=== PATIENT | male | born 1985 | race Caucasian/White ===

== ENCOUNTER 2021-05-01 11:03 | Emergency (ER) | payer SELFPAY ==
[~2021-05-01] VITALS: Ht 185.4 cm; Wt 75.0 kg
[~2021-05-01 11:03] MED LIST: AMOX500C2; CLIN300C3 PO; CODE-54; HCA25SU PR
[2021-05-01] MEDS ORDERED: TETANUS,DIPTH,PERTUSS P/F (BOOSTRIX) 0.5 ML VIAL IM ONE (11:15)
[2021-05-01] MEDS ORDERED: LIDOCAINE/EPI 2% 1:100,00 (XYLOCAINE) 20 ML VIAL INJ ONE (11:15)
[2021-05-01] MEDS ORDERED: ONDANSETRON 4 MG/2 ML (SDV) Z0FRAN ONE (11:23)
[2021-05-01] MEDS ORDERED: ONDANSETRON 4 MG/2 ML (SDV) Z0FRAN IVP ONE (11:30)
--- NOTE | 2021-05-01 11:33 | ED Fall/Injury ---
General Chief Complaint: Trauma EMS/Air Arrival Activat Stated Complaint: HEAD INJ FALL Source: patient Exam Limitations: no limitations (MATTHIEU ALCARAZ APRN) History of Present Illness Date Seen by Provider: May 01, 2021 Time Seen by Provider: 11:30 Initial Comments To ER with reports of head injury after a fall. He was working on the [employer] in [facility]. He states that the last thing he remembers was being up on a lift and then noticing his head was bloody and he was not on the left anymore. People on scene report that he was on the back of a truck when he fell off and struck the back of his head on the ground. He denies any other complaints of pain. He had some questionable seizure-like activity on scene and could not remember what happened including could not remember his birthday. Occurred: just prior to arrival Severity: moderate Injuries/Pain Location: head Context: unknown Loss of Consciousness: no loss of consciousness Associated Symptoms (Fall): Confusion (MATTHIEU ALCARAZ APRN) Allergies and Home Medications Allergies Coded Allergies: No Known Drug Allergies (Unverified , 05/05/09) Home Medications Clindamycin Hcl 300 Mg Capsule, 1 EACH PO QID FOR INFECTION Prescribed by: DEMAR ALARCON on 05/05/09 1544 Hydrocortisone Acetate 1 Ea Supp, 1 SUPP.RECT IN BID PRN Prescribed by: DEVON CRAWFORD on 04/24/12 2241 Ondansetron 8 Mg Tab.rapdis, 8 MG PO Q6H PRN for NAUSEA/VOMITING Prescribed by: MATTHIEU ALCARAZ on 05/01/21 1232 Patient Home Medication List Home Medication List Reviewed: Yes (MATTHIEU ALCARAZ APRN) Review of Systems Review of Systems Constitutional: see HPI Eyes: No Symptoms Reported Ears, Nose, Mouth, Throat: no symptoms reported Respiratory: no symptoms reported Cardiovascular: no symptoms reported Genitourinary: no symptoms reported Musculoskeletal: no symptoms reported Skin: no symptoms reported Psychiatric/Neurological: No Symptoms Reported (MATTHIEU ALCARAZ APRN) Physical Exam Vital Signs Vital Signs - First Documented 05/01/21 11:11 Temp 36.0 Pulse 120 Resp 30 B/P (MAP) 139/95 (110) Pulse Ox 95 O2 Delivery Room Air (SANGITA DAILY MD) Vital Signs Capillary Refill : (MATTHIEU ALCARAZ APRN) Height, Weight, BMI Height: '" Weight: lbs. oz. kg; BMI Method: General Appearance: WD/WN, no apparent distress, other (At the time of arrival to ER he is alert and oriented and denies any complaints of headache or pain anywhere. He is in a rigid cervical collar with a laceration to the right parietal scalp covered with gauze. He states his tetanus is not up-to-date. He is laughing smiling and joking with us. Conversation is appropriate. He states he can only remember being up on the lift and then noticing that his head was bloody. He knows his name date of and where he is at currently.) HEENT: normal ENT inspection (No epistaxis or septal hematoma), TMs normal Neck: non-tender, normal inspection Cardiovascular: regular rate, rhythm, no murmur Respiratory: normal breath sounds, no respiratory distress, no accessory muscle use Gastrointestinal: normal bowel sounds, non tender, soft Neurologic/Psychiatric: alert, normal mood/affect, oriented x 3 Skin: normal color, warm/dry Shortly after my exam he did complain to the nurse of some nausea. 8 mg of Zofran IV ordered. (MATTHIEU ALCARAZ APRN) [place] Coma Score Best Eye Response: (4) Open Spontaneously Best Verbal Response: (5) Oriented Best Motor Response: (6) Obeys Commands [place] Total: 15 (MATTHIEU ALCARAZ APRN) Progress/Results/Core Measures Results/Orders Medications Given in ED Current Medications Medications Dose Ordered Sig/Liang Route Start Time Stop Time Status Last Admin Dose Admin Diphtheria/ Tetanus/Acell Pertussis 0.5 ml ONCE ONCE IM 05/01/21 11:15 05/01/21 11:18 DC 05/01/21 12:36 0.5 ML Lidocaine/ Epinephrine 20 ml ONCE ONCE INJ 05/01/21 11:15 05/01/21 11:18 DC 05/01/21 12:32 1 ML Ondansetron HCl 8 mg ONCE ONCE IVP 05/01/21 11:30 05/01/21 11:31 DC 05/01/21 11:25 8 MG Promethazine HCl 25 mg STK-MED ONCE .ROUTE 05/01/21 12:02 05/01/21 12:05 DC 05/01/21 12:07 12.5 MG (SANGITA DAILY MD) Vital Signs/I&O 05/01/21 05/01/21 11:11 12:45 Temp 36.0 36.0 Pulse 120 93 Resp 30 24 B/P (MAP) 139/95 (110) 120/87 (110) Pulse Ox 95 97 O2 Delivery Room Air Room Air (SANGITA DAILY MD) Departure Communication (Admissions) Family Conversation 1233-The laceration to the right parietal scalp was anesthetized with 1 mL of 1% lidocaine with epinephrine. Depth is to the subcutaneous tissue. Scrubbed with peroxide to get the dried blood off. Irrigated with saline. Closed with 4 cielo. I discussed concussion management with the including physical and cognitive rest at home, the need to be off of work for 7 days and a work note. I will send in some nausea medicine to their pharmacy of choice which is [facility]. 1220-rigid cervical collar removed at this time. Will anesthetize the laceration to the scalp and staple. (MATTHIEU ALCARAZ APRN) Impression Primary Impression: Brain concussion Qualified Codes: S06.0X9A - Concussion with loss of consciousness of unspecified duration, initial encounter Additional Impressions: Scalp laceration Qualified Codes: S01.01XA - Laceration without foreign body of scalp, initial encounter Mucous retention cyst of left maxillary sinus Disposition: HOME, SELF-CARE Condition: Stable Departure-Patient Inst. Decision time for Depature: 12:23 (MATTHIEU ALCARAZ APRN) Referrals: KERLINE MARY MD NO,LOCAL PHYSICIAN (PCP) Primary Care Physician Patient Instructions: Concussion in Adults Add. Discharge Instructions: 1. Tylenol and ibuprofen for pain control. Nausea medication as needed. All discharge instructions reviewed with patient and/or family. Voiced understanding. Scripts Ondansetron (Ondansetron Odt) 8 Mg Tab.rapdis 8 MG PO Q6H PRN for NAUSEA/VOMITING, #10 TAB Prov: MATTHIEU ALCARAZ APRN 05/01/21 Work/School Note: Work Release Form Date Seen in the Emergency Department: May 01, 2021 Return to Work: May 08, 2021 ATTENDING PHYSICIAN NOTE: I was physically present as attending physician in the emergency department during the care of this patient, but I was not directly involved in the decision making or delivery of care for this patient. (SANGITA DAILY MD) MATTHIEU ALCARAZ APRN May 01, 2021 11:33 SANGITA DAILY MD May 01, 2021 22:08
[2021-05-01] MEDS ORDERED: PROMETHAZINE INJ 25 MG/ML (PHENERGAN) AMP ONE (12:02)
--- NOTE | 2021-05-01 12:02 | Diagnostic Imaging Report ---
PROCEDURE: CT head and CT cervical spine without contrast. TECHNIQUE: Multiple contiguous axial images were obtained through the brain and cervical spine without the use of intravenous contrast. Sagittal and coronal reformations through the cervical spine were then performed. Auto Exposure Controls were utilized during the CT exam to meet ALARA standards for radiation dose reduction. INDICATION: Fall. Head injury. COMPARISON: CT head 05/05/2009. FINDINGS: CT HEAD: No intracranial hemorrhage, mass effect, hydrocephalus or extra-axial fluid collections. No CT evidence for territorial infarction. Osseous structures are intact. Probable mucous retention cyst in the left maxillary sinus is partially visualized. There is also occlusion of the left frontal and anterior left ethmoid air cells. Mastoids are clear. CT cervical spine: Normal alignment. Vertebral body heights preserved. No fractures. No substantial spondylotic change. Lung apices are clear. Visualized paravertebral soft tissues are unremarkable. IMPRESSION: 1. No acute intracranial or cervical spine CT findings. 2. Probable mucous retention cyst expanding the partially visualized left maxillary sinus including the ethmoid and frontal sinuses. Dictated by: Dictated on workstation # [id number]
[2021-05-01] MEDS ORDERED: ONDA8TAB13 PO (12:32)
[2021-05-01 12:45] VITALS: BP 120/87
== END 2021-05-01 12:42 | disposition home or self-care (01) ==
LOC: EDUNIT# 11:03 → ER 11:04
DX: S06.0X0A Concussion without loss of consciousness, initial encounter (principal); S01.01XA Laceration without foreign body of scalp, initial encounter; J34.1 Cyst and mucocele of nose and nasal sinus; R40.2410 Glasgow coma scale score 13-15, unspecified time; Z23 Encounter for immunization; W22.8XXA Striking against or struck by other objects, initial encounter
CPT/HCPCS: 12001; 70450; 72125; 90715

== ENCOUNTER 2021-05-10 13:16 | Emergency (ER) | payer SELFPAY ==
[~2021-05-10] VITALS: Ht 175 cm; Wt 72.0 kg
[~2021-05-10 13:16] MED LIST changes: +ONDA8TAB13 PO
== END 2021-05-10 13:40 | disposition home or self-care (01) ==
LOC: EDUNIT# 13:16 → ER 13:17
DX: Z48.02 Encounter for removal of sutures (principal)

== ENCOUNTER 2022-08-01 13:38 | Emergency (ER) | payer SELFPAY ==
[~2022-08-01] VITALS: Ht 182 cm; Wt 63.0 kg
[2022-08-01] MEDS ORDERED: fentaNYL INJ 100 MCG/2 ML AMP ONE (13:45)
--- NOTE | 2022-08-01 13:59 | ED Trauma-Multisystem ---
General Chief Complaint: Trauma EMS/Air Arrival Activat Stated Complaint: FALL Nursing Triage Note: ARRIVED VIA EMS FROM WORK AFTER FALLING OFF A RAFTER APPX 12FT HIGH. PT LANDED ON ALL 4 EXT WITH A DEFORMITY TO LEFT UPPER LEG. PT DENIES HITTING HIS HEAD OR LOC. DENIES NECK, CHEST OR ABD PAIN. Source of Information: Patient, EMS Exam Limitations: No Limitations History of Present Illness Date Seen by Provider: Aug 01, 2022 Time Seen by Provider: 13:42 Initial Comments Patient is a 37-year-old male who presents to the emergency room by EMS chief complaint left femur pain and deformity after a fall. Patient was allegedly 12 feet in the air on a rafter running gas line when he fell. Patient states that he landed "on all fours". Immediate pain left thigh. Denies hitting his head or loss of consciousness. No upper extremity pain. No neck pain, chest pain, abdominal pain. He arrives in a Rodolfo splint on a long spine board. No cervic al collar. . He is awake alert and oriented. Smells of alcohol - does state that he had "3 shots" this morning. No other food or other drink since last night. Denies past medical history. No prior surgeries. Vital signs on arrival stable. Not tachycardic not hypotensive. Does appear to have significant left femur deformity/hematoma. Intact distal pulses on the left foot - dorsalis pedis 2+. Normal sensation. All other ROS reviewed and neg except as stated. Occurred: Just Prior to Arrival (time of call 12:50pm) Severity: Severe Pain/Injury Location: Lower Extremity (left femur) Method of Injury: Fall Modifying Factors: No Movement Loss of Consciousness: No Loss of Consciousness Associated Symptoms (Fall): Denies Symptoms Allergies and Home Medications Allergies Coded Allergies: No Known Drug Allergies (Unverified , 05/05/09) Patient Home Medication List Home Medication List Reviewed: Yes No Active Prescriptions or Reported Meds Review of Systems Review of Systems Constitutional: see HPI Respiratory: no symptoms reported Cardiovascular: No Symptoms Reported Gastrointestinal: no symptoms reported Genitourinary: no symptoms reported Musculoskeletal: other (left thigh pain) Skin: no symptoms reported All Other Systems Reviewed Negative Unless Noted: Yes Past Drkjjgw-Fcwygg-Mwbiit Hx Patient Social History Tobacco Use?: Yes Substance use?: Yes Substance type: Marijuana Alcohol Use?: Yes Alcohol type: Hard Liquor Alcohol Frequency: Daily Immunizations Up To Date First/Initial COVID19 Vaccinat: UNKNOWN COVID19 Vaccine Project Architect: UNKNOWN Physical Exam Vital Signs Vital Signs - First Documented 08/01/22 08/01/22 13:38 13:50 Temp 36.3 Pulse 64 Resp 13 B/P (MAP) 99/82 (88) Pulse Ox 99 O2 Delivery Nasal Cannula O2 Flow Rate 2.00 Height, Weight, BMI Height: '" Weight: lbs. oz. kg; 19.00 BMI Method:Estimated General Appearance: Mild Distress; No Obese; Thin, Other (strong smell of etoh from patient) Head: No Evidence of Injury; No Ring's Sign, No Contusions, No Raccoon Eyes, No Tenderness Eyes: Bilateral Eye Normal Inspection, Bilateral Eye PERRL (2mm and equal bilaterally), Bilateral Eye EOMI Ears, Nose, Throat: Hearing Grossly Normal, No Evidence of ENT Injury, No Dental Injury Neck: Full Range of Motion, Non Tender, Other (no cervical collar on arrival) Cardiovascular: Regular Rate, Rhythm, Normal Peripheral Pulses Respiratory: Chest Non Tender, Lungs Clear, Normal Breath Sounds, No Accessory Muscle Use, No Respiratory Distress Gastrointestinal: Normal Bowel Sounds, Non Tender, Soft Genital/Rectal: Normal Genital Exam Back: Normal Inspection, No Vertebral Tenderness Extremity: Normal Capillary Refill, Swelling (significant swelling left thigh (deformity left femur) no eccymoses or open wounds;) Neurologic/Psychiatric: Alert, Oriented x3, No Motor/Sensory Deficits, Normal Mood/Affect, 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 Skin: Normal Color, Warm/Dry [place] Coma Score Best Eye Response ([place]): (4) Open Spontaneously Best Verbal Response ([place]): (5) Oriented Best Motor Response ([place]): (6) Obeys Commands [place] Total: 15 Procedures/Interventions Splinting and Joint Reduction : Pre-Proc Neuro Vasc Exam: normal Post-Proc Neuro Vasc Exam: normal Progress Rodolfo traction device used to reduce femur fracture; remains NVI post placement Progress/Results/Core Measures Results/Orders Lab Results Laboratory Tests Test 08/01/22 13:40 08/01/22 14:15 Range/Units White Blood Count 5.4 4.3-11.0 10^3/uL Red Blood Count 3.77 L 4.30-5.52 10^6/uL Hemoglobin 14.0 13.3-17.7 g/dL Hematocrit 39 L 40-54 % Mean Corpuscular Volume 105 H 80-99 fL Mean Corpuscular Hemoglobin 37 H 25-34 pg Mean Corpuscular Hemoglobin Concent 36 32-36 g/dL Red Cell Distribution Width 13.0 10.0-14.5 % Platelet Count 121 L 130-400 10^3/uL Mean Platelet Volume 10.1 9.0-12.2 fL Percent Immature Platelet Fraction 6.0 0.0-7.6 % Sodium Level 139 135-145 MMOL/L Potassium Level 3.6 3.6-5.0 MMOL/L Chloride Level 102 98-107 MMOL/L Carbon Dioxide Level 23 21-32 MMOL/L Anion Gap 14 5-14 MMOL/L Blood Urea Nitrogen 5 L 7-18 MG/DL Creatinine 0.75 0.60-1.30 MG/DL Estimat Glomerular Filtration Rate 120 BUN/Creatinine Ratio 7 Glucose Level 97 70-105 MG/DL Calcium Level 9.3 8.5-10.1 MG/DL Total Bilirubin 0.6 0.1-1.0 MG/DL Direct Bilirubin 0.5 H 0.0-0.3 MG/DL Indirect Bilirubin 0.1 MG/DL Aspartate Amino Transf (AST/SGOT) 704 H 5-34 U/L Alanine Aminotransferase (ALT/SGPT) 267 H 0-55 U/L Alkaline Phosphatase 133 40-136 U/L Total Protein 7.7 6.4-8.2 GM/DL Albumin 4.2 3.2-4.5 GM/DL Serum Alcohol 351 *H <10 MG/DL Urine Color YELLOW Urine Clarity CLEAR Urine pH 6.5 5-9 Urine Specific [place] 1.015 L 1.016-1.022 Urine Protein 2+ H NEGATIVE Urine Glucose (UA) NEGATIVE NEGATIVE Urine Ketones NEGATIVE NEGATIVE Urine Nitrite NEGATIVE NEGATIVE Urine Bilirubin NEGATIVE NEGATIVE Urine Urobilinogen 0.2 < = 1.0 MG/DL Urine Leukocyte Esterase NEGATIVE NEGATIVE Urine RBC (Auto) TRACE-I H NEGATIVE Urine RBC 0-2 /HPF Urine WBC 0-2 /HPF Urine Squamous Epithelial Cells 0-2 /HPF Urine Crystals NONE /LPF Urine Bacteria NEGATIVE /HPF Urine Casts NONE /LPF Urine Mucus SMALL H /LPF Urine Culture Indicated NO My Orders Orders - TRISTAN DIAZ MD Fentanyl Inj (Sublimaze Injection) (08/01/22 13:45) Cbc No Diff (08/01/22 13:51) Basic Metabolic Panel (08/01/22 13:51) Liver Panel (08/01/22 13:51) Alcohol (08/01/22 13:51) Ua Culture If Indicated (08/01/22 13:51) Chest 1 View, Ap/Pa Only (08/01/22 13:51) End Tidal Co2 (08/01/22 13:51) Monitor-Rhythm Ecg Trace Only (08/01/22 13:51) Ed Iv/Invasive Line Start (08/01/22 13:51) Pelvis 1 To 2 Views (08/01/22 13:51) Femur, Left, 2 Views (08/01/22 13:51) Fentanyl Inj (Sublimaze Injection) (08/01/22 14:00) Ns Iv 1000 Ml (Sodium Chloride 0.9%) (08/01/22 14:00) Ondansetron Injection (Zofran Injectio (08/01/22 14:00) Drug Screen Stat (Urine) (08/01/22 13:51) Catheter(Urinary) Insert & Ass 03,15 (08/01/22 13:51) Lidocaine 2% (Urojet) (Xylocaine Urojet) (08/01/22 14:00) Fentanyl Inj (Sublimaze Injection) (08/01/22 14:15) Medications Given in ED Current Medications Medications Dose Ordered Sig/Liang Route Start Time Stop Time Status Last Admin Dose Admin Fentanyl Citrate 50 mcg ONCE ONCE IVP 08/01/22 14:15 08/01/22 14:16 DC 08/01/22 14:17 50 MCG Fentanyl Citrate 100 mcg ONCE ONCE IVP 08/01/22 14:00 08/01/22 14:01 DC 08/01/22 13:46 100 MCG Lidocaine HCl 10 ml ONCE ONCE TOP 08/01/22 14:00 08/01/22 14:01 DC 08/01/22 14:09 10 ML Ondansetron HCl 4 mg ONCE ONCE IVP 08/01/22 14:00 08/01/22 14:01 DC 08/01/22 14:06 4 MG Vital Signs/I&O 08/01/22 08/01/22 13:38 13:50 Temp 36.3 Pulse 64 Resp 13 B/P (MAP) 99/82 (88) Pulse Ox 99 84 O2 Delivery Nasal Cannula O2 Flow Rate 2.00 Blood Pressure Mean: 88 Progress Progress Note : Time: 14:47 Progress Note Patient seen and examined, 37-year-old who fell 12 feet off of a tractor onto hands and knees. Evaluation today includes physical exam, patient has notable left proximal femur deformity with shortening of the left lower extremity. He arrives on a long spine board in a Rodolfo traction splint no cervical collar. Patient is clinically sober however has strong smell of alcohol. Adamantly denies any pain in his neck. No bony point tenderness. He does have distracting injury with a left lower extremity fracture versus fracture disloca tion. He had trauma labs obtained which show alcohol intoxication with a level greater than 300 as well as significantly elevated transaminases. Initial CBC is otherwise normal. Normal renal function, normal electrolytes. Griffin catheter was placed. Rodolfo traction was replaced. Leg out to length, neurovascularly intact. Rest of his exam is unremarkable. No bony tenderness or crepitance to the chest wall. Lung sounds even, breathing unlabored. Pulse ox 99% on room air. Abdomen is soft and nontender. Pelvis is stable. Neurovascularly intact to the bilateral lower extremities. No open wounds are noted. No bony tenderness to the midline thoracic/lumbar spine. Treated with NS/ fentanyl and zofran. Case discussed with Dr. Derrell Newton [place] ED for trauma transfer. He accepts the patient at this time. Diagnostic Imaging Diagonstic Imaging: Xray Comments [facility] [place] NAME: DARSHAN CASE [facility] REC#: [id number] PT STATUS: REG ER : 1985 PHYSICIAN: TRISTAN DIAZ MD ADMIT DATE: 08/01/22/ER Draft Date of Exam:08/01/22 PELVIS 1 TO 2 VIEWS Indication: Fall 12 feet from a ladder. Time of Exam: 1:53 PM Single AP view of the pelvis does show a comminuted fracture of the intertrochanteric and subtrochanteric left femur. Femoral acetabular alignment is maintained. The rami appear intact. SI joints and symphysis are non-widened. IMPRESSION: Comminuted proximal left femur fracture. No other abnormalities are seen. Dictated on workstation # [id number] Dict: 08/01/22 1425 Trans: 08/01/22 1430 [facility] [id number] Interpreted by: MC GERMAN MD Electronically signed by: Anneliesenstic Imaging: Xray Comments [facility] [place] NAME: DARSHAN CASE MED REC#: [id number] PT STATUS: REG ER : 1985 PHYSICIAN: TRISTAN DIAZ MD ADMIT DATE: 08/01/22/ER Draft Date of Exam:08/01/22 FEMUR, LEFT, 2 VIEWS INDICATION: Trauma, fall from 12' [facility] ([place] TECHNIQUE: AP and lateral view left femur, 1:44 PM. CORRELATION STUDY: None FINDINGS: There is extensive, comminuted fracture involving the proximal left femur. Main fracture fragments along the proximal diaphyseal shaft but extends vertically through the greater trochanter. There is rather significant outward displacement of the main fracture fragments. There is retraction impaction along the major fracture lines, as well. The femoral head acetabular relationship appears maintained. IMPRESSION: 1. Comminuted, impacted outwardly displaced proximal left femur fracture. Dictated on workstation # [id number] Dict: 08/01/22 1426 Trans: 08/01/22 1429 [facility] [id number] Interpreted by: LETICIA DIAMOND DO Electronically signed by: Diagonstic Imaging: Xray Comments [facility] [place] NAME: DARSHAN CASE [facility] REC#: [id number] PT STATUS: REG ER : 1985 PHYSICIAN: TRISTAN DIAZ MD ADMIT DATE: 08/01/22/ER Draft Date of Exam:08/01/22 CHEST 1 VIEW, AP/PA ONLY INDICATION: Fall 12 feet from a ladder. TIME OF EXAM: 01:54 p.m. FINDINGS: Single view of the chest shows the lungs to be clear. No effusion or pneumothorax is identified. Bony structures appear intact. IMPRESSION: No acute feature detected. Dictated on workstation # [id number] Dict: 08/01/22 1423 Trans: 08/01/22 1430 [id number] Interpreted by: MC GERMAN MD Electronically signed by: Departure Impression Primary Impression: Femur fracture, left Qualified Codes: S72.332A - Displaced oblique fracture of shaft of left femur, initial encounter for closed fracture Additional Impressions: Alcohol intoxication Qualified Codes: F10.920 - Alcohol use, unspecified with intoxication, uncomplicated Alcoholic liver damage, unspecified Disposition: 02 XFER SHT-TRM HOSP Condition: Stable Transfer Transfer Reason: Exceeds level of care Time Spoke to Accepting Phy: 14:35 Transfer Progress Notes Discussed with Dr Raudel Pang ED Transfer Facility: [place], [place] Method of Transfer: EMS Departure-Patient Inst. Referrals: NO,LOCAL PHYSICIAN (PCP/Family) Primary Care Physician Scripts No Active Prescriptions or Reported Meds TRISTAN DIAZ MD Aug 01, 2022 13:59
[2022-08-01] MEDS ORDERED: NS IV 1000 ML 1,000 ML IV SCH (14:00)
[2022-08-01] MEDS ORDERED: LIDOCAINE UROJET 2% GEL 10 ML PKG TOP ONE (14:00)
[2022-08-01] MEDS ORDERED: fentaNYL INJ 100 MCG/2 ML AMP IVP ONE ×3 (14:00→15:00)
[2022-08-01] MEDS ORDERED: ONDANSETRON 4 MG/2 ML (SDV) Z0FRAN IVP ONE (14:00)
[2022-08-01 14:05] LABS: MEAN PLATELET VOLUME 10.1 fL (9.0-12.2); WHITE BLOOD COUNT 5.4 10^3/uL (4.3-11.0)
[2022-08-01 14:07] LABS: ALBUMIN 4.2 GM/DL (3.2-4.5); POTASSIUM 3.6 MMOL/L (3.6-5.0)
[2022-08-01 14:09] LABS: CALCIUM 9.3 MG/DL (8.5-10.1)
[2022-08-01 14:10] LABS: TOTAL PROTEIN 7.7 GM/DL (6.4-8.2)
[2022-08-01 14:11] LABS: BILIRUBIN,TOTAL 0.6 MG/DL (0.1-1.0)
[2022-08-01 14:14] LABS: CREATININE SERUM 0.75 MG/DL (0.60-1.30)
[2022-08-01 14:15] LABS: BILIRUBIN,DIRECT 0.5 MG/DL (0.0-0.3); BILIRUBIN,INDIRECT 0.1 MG/DL
[2022-08-01 14:22] LABS: BILIRUBIN,URINE NEGATIVE (NEGATIVE); CLARITY,URINE CLEAR; COLOR,URINE YELLOW; GLUCOSE, URINE (UA) NEGATIVE (NEGATIVE); KETONES,URINE NEGATIVE (NEGATIVE); LEUKOCYTE ESTERASE ,URINE NEGATIVE (NEGATIVE); NITRITE,URINE NEGATIVE (NEGATIVE); PH,URINE 6.5 (5-9); PROTEIN,URINE 2+ (NEGATIVE)
--- NOTE | 2022-08-01 14:29 | Diagnostic Imaging Report ---
INDICATION: Trauma, fall from 12' rafter. TECHNIQUE: AP and lateral view left femur, 1:44 PM. CORRELATION STUDY: None FINDINGS: There is extensive, comminuted fracture involving the proximal left femur. Main fracture fragments along the proximal diaphyseal shaft but extends vertically through the greater trochanter. There is rather significant outward displacement of the main fracture fragments. There is retraction impaction along the major fracture lines, as well. The femoral head acetabular relationship appears maintained. IMPRESSION: 1. Comminuted, impacted outwardly displaced proximal left femur fracture. Dictated by: Dictated on workstation # [id number]
[2022-08-01 14:30] LABS: BACTERIA,URINE NEGATIVE /HPF; RBC,URINE 0-2 /HPF; WBC,URINE 0-2 /HPF
[2022-08-01 14:31] LABS: SQUAMOUS EPITHELIAL CELL,UR 0-2 /HPF
--- NOTE | 2022-08-01 14:31 | Diagnostic Imaging Report ---
Indication: Fall 12 feet from a ladder. Time of Exam: 1:53 PM Single AP view of the pelvis does show a comminuted fracture of the intertrochanteric and subtrochanteric left femur. Femoral acetabular alignment is maintained. The rami appear intact. SI joints and symphysis are non-widened. IMPRESSION: Comminuted proximal left femur fracture. No other abnormalities are seen. Dictated by: Dictated on workstation # [id number]
--- NOTE | 2022-08-01 14:31 | Diagnostic Imaging Report ---
INDICATION: Fall 12 feet from a ladder. TIME OF EXAM: 01:54 p.m. FINDINGS: Single view of the chest shows the lungs to be clear. No effusion or pneumothorax is identified. Bony structures appear intact. IMPRESSION: No acute feature detected. Dictated by: Dictated on workstation # [id number]
[2022-08-01 14:38] LABS: AMPHETAMINE SCREEN, URINE NEGATIVE (NEGATIVE); BARBITURATE SCREEN URINE NEGATIVE (NEGATIVE); BENZODIAZEPINES SCREEN URINE NEGATIVE (NEGATIVE); CANNABINOID SCREEN, URINE POSITIVE (NEGATIVE); COCAINE SCREEN URINE NEGATIVE (NEGATIVE); METHADONE STAT NEGATIVE (NEGATIVE); OPIATE SCREEN URINE POSITIVE (NEGATIVE); OXYCODONE STAT NEGATIVE (NEGATIVE); PROPOXYPHENE STAT NEGATIVE (NEGATIVE); TRICYCLIC ANTIDEPRESSANTS SCRE NEGATIVE (NEGATIVE)
[2022-08-01 15:30] VITALS: BP 112/77
== END 2022-08-01 15:30 | disposition short-term general hospital (02) ==
LOC: EDUNIT# 13:38 → ER 13:39
DX: S72.8X2A Other fracture of left femur, initial encounter for closed fracture (principal); F10.229 Alcohol dependence with intoxication, unspecified; K70.9 Alcoholic liver disease, unspecified; E66.9 Obesity, unspecified; Y90.8 Blood alcohol level of 240 mg/100 ml or more; Z68.1 Body mass index [BMI] 19.9 or less, adult; Z28.311 Partially vaccinated for COVID-19; W17.89XA Other fall from one level to another, initial encounter
CPT/HCPCS: 51702; 71045; 72170; 73552; 80048; 80076; 80306; 81000; 85027; 93041; 99284; G0480; 36415; 80320